=== PATIENT | female | born 1995 | race Two or more races ===

== ENCOUNTER 2023-02-16 21:11 | Emergency (ER) | payer OTHER, MEDICAID, SELFPAY ==
[2023-02-16 21:22] VITALS: BP 116/81; PULSE 70; RESP 20; TEMP 36.7; O2SAT 98; BMI 28.3
[2023-02-16 22:54] VITALS: RESP 16
--- NOTE | 2023-02-16 22:54 | PC.NURSE ---
patient ambulated from the waiting room to [facility]. Pt resting on stretcher at this time, respirations even and unlabored, skin pwd, alert and oriented x4. Awaiting provider at this time
[2023-02-16] MEDS: Lidocaine 4 % Patch ADH..PATCH 1 PATCH TRANSDERMA (23:11)
[2023-02-16] MEDS: Acetaminophen 325 MG TABLET 975 MG PO (23:11)
[2023-02-16] MEDS: Ibuprofen 400 MG TABLET PO (23:11)
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
[2023-02-17] MEDS: Lidocaine 4 % Patch ADH..PATCH 1 PATCH TRANSDERMA (00:24)
== END 2023-02-17 00:26 | disposition home or self-care (01) ==
PROVIDERS: Emergency Provider Student in an Organized Health Care Education/Training Program
DX: S39.92XA Unspecified injury of lower back, initial encounter (principal); M25.512 Pain in left shoulder; M79.10 Myalgia, unspecified site; V49.9XXA Car occupant (driver) (passenger) injured in unspecified traffic accident, initial encounter; Y93.9 Activity, unspecified; Y92.410 Unspecified street and highway as the place of occurrence of the external cause; Y99.9 Unspecified external cause status
CPT/HCPCS: 99283; 99284